=== PATIENT | male | born 1950 | race Caucasian/White ===

== ENCOUNTER → 2020-06-17 19:01 | Outpatient (ROUT) | payer MEDICARE, OTHER, SELFPAY ==
[2020-06-17 19:42] LABS: Add Manual Diff / Slide Review NO; Basophils Absolute Auto 0 /uL (0-100); Basophils Percent Auto 0.4 % (0-2); Eosinophils Absolute Auto 100 /uL (0-450); Eosinophils Percent Auto 1.5 % (2-4); Hematocrit 44.5 % (41-53); Hemoglobin 15.4 g/dL (13.5-17.5); Lymphocytes Absolute Auto 1400 /uL (1100-4500); Lymphocytes Percent Auto 24.1 % (25-40); Mean Corpuscular HGB Conc 34.6 % (30-36); Mean Corpuscular Hemoglobin 32.1 PG (26-34); Mean Corpuscular Volume 92.7 fL (80-100); Monocytes Absolute Auto 400 /uL (0-900); Monocytes Percent Auto 6.6 % (3-14); Neutrophils Absolute Auto 4000 /uL (1500-7000); Neutrophils Percent Auto 67.4 % (50-75); Platelet Count 169 X10^3/uL (150-400); Red Cell Distribution Width 12.9 % (11.6-14.8)
[2020-06-17 19:49] LABS: Aspartate Aminotransferase 28 IU/L (17-59); BUN Creatinine Ratio 24.6 (6-22); Blood Urea Nitrogen 17 mg/dL (9-20); Calcium 9.5 mg/dL (8.4-10.2); Carbon Dioxide 26 mmol/L (22-32); Chloride 104 mmol/L (98-107); Cholesterol 108 mg/dL (140-199); Estimated Glomerular Filt Rate > 60.0 mL/min (>60); Glucose 105 mg/dL (80-110); HDL Cholesterol 40 mg/dL (40-60); HEMOLYSIS < 15 (0-50); LDL Cholesterol Calculated 56 mg/dL (<100); Potassium 3.7 mmol/L (3.4-5.1); Sodium 139 mmol/L (137-145); Triglycerides 59 mg/dL (35-150)
[2020-06-17 20:20] LABS: Prostate Specific Antigen 1.06 ng/mL (0.10-4.00); TSH w/ Reflex to FT4 2.18 uIU/mL (0.47-4.68)
== END ==
PROVIDERS: Family Provider Internal Medicine; PCP Internal Medicine; Visit Provider Internal Medicine
DX: I10 Essential (primary) hypertension (principal); E78.2 Mixed hyperlipidemia; N40.1 Benign prostatic hyperplasia with lower urinary tract symptoms
CPT/HCPCS: 80048; 80061; 84153; 84443; 84450; 85025

== ENCOUNTER → 2021-09-16 10:24 | Outpatient (CLI) | payer MEDICARE, OTHER, SELFPAY ==
[2021-09-16 11:19] LABS: Hematocrit 43.5 % (41-53); Hemoglobin 15.1 g/dL (13.5-17.5); Mean Corpuscular HGB Conc 34.7 % (30-36); Mean Corpuscular Hemoglobin 31.9 PG (26-34); Platelet Count 195 X10^3/uL (150-400); Red Blood Cell Count 4.73 X10^6/uL (4.5-5.9); White Blood Cell Count 5.8 X10^3/uL (4.5-11.0)
[2021-09-16 11:48] LABS: Alanine Aminotransferase 22 IU/L (<50); Albumin 3.9 g/dL (3.5-5.0); Albumin Globulin Ratio 1.3 (1.0-2.8); Alkaline Phosphatase 81 U/L (38-126); Aspartate Aminotransferase 29 IU/L (17-59); BUN Creatinine Ratio 15.9 (6-22); Bilirubin Total 0.4 mg/dL (0.2-1.3); Blood Urea Nitrogen 13 mg/dL (9-20); Calcium 8.6 mg/dL (8.4-10.2); Carbon Dioxide 31 mmol/L (22-32); Chloride 103 mmol/L (98-107); Cholesterol 100 mg/dL (140-199); Estimated Glomerular Filt Rate > 60 mL/min (>60); Globulin 2.9 g/dL (1.7-4.1); Glucose 100 mg/dL (80-110); HDL Cholesterol 35 mg/dL (40-60); HEMOLYSIS < 15 (0-50); LDL Cholesterol Calculated 53 mg/dL (<100); Potassium 4.1 mmol/L (3.4-5.1); Sodium 139 mmol/L (137-145); Total Protein 6.8 g/dL (6.3-8.2); Triglycerides 62 mg/dL (35-150)
[2021-09-16 12:19] LABS: Prostate Specific Antigen 1.26 ng/mL (0.10-4.00)
[2021-09-16 12:20] LABS: TSH w/ Reflex to FT4 1.53 uIU/mL (0.47-4.68)
== END ==
PROVIDERS: Family Provider Internal Medicine; PCP Internal Medicine; Referring Provider Internal Medicine; Visit Provider Internal Medicine
DX: E78.2 Mixed hyperlipidemia (principal); I10 Essential (primary) hypertension; N13.8 Other obstructive and reflux uropathy; N40.1 Benign prostatic hyperplasia with lower urinary tract symptoms
CPT/HCPCS: 36415; 80053; 80061; 84153; 84443; 85027

== ENCOUNTER 2022-06-16 15:11 | Emergency (ER) | payer MEDICARE, OTHER, SELFPAY ==
[2022-06-16 15:47] VITALS: BP 193/95; PULSE 89; RESP 16; TEMP 37.2; O2SAT 98; BMI 25.5
[2022-06-16] MEDS: ACETAMINOPHEN 325 MG TABLET 650 MG PO (16:29)
[2022-06-16] MEDS: LIDOCAINE 2% INJ SDV 5ML 5 ML INJ (16:29)
--- NOTE | 2022-06-16 16:41 | ED_ITS ---
HPI - Wound/Laceration General Chief Complaint: Wound/Laceration Stated Complaint: Pinky finger cut on blade Time Seen by Provider: 06/16/22 16:23 Source: patient Mode of arrival: Ambulatory History of Present Illness HPI narrative: This is a 72-year-old gentleman who presents to the emergency department after he accidentally cut his left 4th finger using a rotary tool. States that his tetanus today, injured the distal tip is finger, states that it started bleeding covered it up so fast he was not sure if there is any tissue to preserve. He is not anticoagulated denies any medical problems that will affect his finger laceration. Related Data Previous Rx's Medication Instructions Recorded doxazosin 4 mg tablet 8 mg PO Q DAY #180 tabs 09/16/21 losartan 50 mg-hydrochlorothiazide 1 tab PO DAILY #90 tabs 09/16/21 12.5 mg tablet omeprazole 20 mg capsule,delayed 20 mg PO Q DAY #90 caps 09/16/21 release rosuvastatin 10 mg tablet 10 mg PO DAILY #90 tabs 09/16/21 cephalexin 500 mg capsule 500 mg PO TID 5 days #15 caps 06/16/22 mupirocin 2 % topical ointment 1 applic topical DAILY #15 grams 06/16/22 Allergies Allergy/AdvReac Type Severity Reaction Status Date / Time No Known Drug Allergies Allergy Verified 06/16/22 15:47 Review of Systems Review of Systems ROS Unobtainable: All systems reviewed & are unremarkable except as noted in HPI and below Patient History Medical History Advance directive indicates patient wish for [id number] status Advanced directives, counseling/discussion Allergic rhinitis BPH w urinary obs/LUTS Do not resuscitate Essential hypertension Family history of colon cancer in mother Foot pain (~2018) GERD without esophagitis Hearing loss History of colonic polyps Medicare annual wellness visit, initial Mixed hyperlipidemia Primary osteoarthritis involving multiple joints Ruptured tympanic membrane Skin cancer Slow transit constipation Surgical History Anesthesia Cleft lip and cleft palate Family History Father Cancer Mother Cervical cancer Colon cancer Social History Smoking Status: Never smoker Smoking Status: Never smoker Substance Use Type: does not use Exam Initial Vital Signs Initial Vital Signs: Vital Signs Temperature 98.9 F 06/16/22 15:47 Pulse Rate 89 06/16/22 15:47 Respiratory Rate 16 06/16/22 15:47 Blood Pressure 193/95 H 06/16/22 15:47 Pulse Oximetry 98 06/16/22 15:47 Oxygen Delivery Method Room Air 06/16/22 15:47 My finger exam: Patient's fingertip has macerated tissue with multiple lacerations, it is slowly oozing blood, fingernail injury with laceration over the nail bed and missing the latter half of his fingernail, wound was thoroughly irrigated with normal saline, wound edges were approximated as best as possible with sutures, patient received a total of 17 nylon sutures and 4 chromic gut sutures to both the finger pad and the distal fingertip. X-rays negative for acute fracture, patient was hemostatic after procedure complete, still had a brisk cap refill and full mobility of his finger without presumed tendon injury. Procedures Laceration Repair Laceration 1: Site: hand Side (If applicable): left Size (cm): 3 Description: stellate and irregular Depth: involves muscle layer Local Anesthetic: lidocaine 2% Amount of anesthesia used (mL): 3 Pre-repair: wound explored, irrigated extensively and deep structures intact Skin layer closed with: nylon Skin layer suture size: 5-0 Number of sutures: 17 Technique: simple, interrupted Subcutaneous layer closed with: chromic gut Subcutaneous layer suture size: 4-0 Number of sutures: 3 Technique: simple, interrupted Course Orders Ordered: ED Orders 06/16/22 16:55 XR finger LT min 2V Stat Discontinued Medications Acetaminophen (Acetaminophen 325 Mg Tablet) 650 mg PO NOW ONE Stop: 06/16/22 16:25 Last Admin: 06/16/22 16:29 Dose: 650 mg Documented By: CARL Lidocaine HCl (Lidocaine 2% Inj Sdv 5ml) 5 ml INJ INTRA-OP ONE Stop: 06/16/22 16:25 Last Admin: 06/16/22 16:29 Dose: 5 ml Documented By: CARL Vital Signs Vital signs: Vital Signs - 8 hr 06/16/22 15:47 Temperature 98.9 F Pulse Rate 89 Respiratory Rate 16 Blood Pressure 193/95 H Pulse Oximetry 98 Oxygen Delivery Method Room Air MDM - Wound/Laceration Imaging Data Extremity x-ray #1: Radiologist's Impression: PROCEDURE:? XR FINGER LT MIN 2V ? INDICATIONS:? saw trauma ? TECHNIQUE:? AP hand, 2 views of the 5th finger(s) acquired.? ? COMPARISON:? None. ? FINDINGS:? ? Bones:? No fractures or dislocations.? No suspicious bony lesions.? Age- appropriate bony degenerative changes are seen.? ? Soft tissues:? 5th finger soft tissue injury can be seen, with overlying gauze material. ? IMPRESSION:? 5th finger soft tissue injury, without an associated bony abnormality identified. ? ? Dictated by: Skyler Rizzo M.D. on 06/16/2022 at 16:25 ? ? Approved by: Skyler Rizzo M.D. on 06/16/2022 at 16:26 ? MDM Narrative Medical decision making narrative: Chief Complaint: finger laceration Independent historian: patient Multiple etiologies for patient's symptoms considered including, but not limited to: Skin laceration, vascular injury, tuft fracture I have independently reviewed the patient's vital signs and nursing notes as well as prior records if available. My interpretation of imaginth finger x-rays negative for acute fracture/abnormality Course of care: Patient's tetanus is up-to-date, suture repair was completed, patient's wound was covered with Surgicel to help with bleeding, Xeroform, and adhesive dressing was placed, cap refill is brisk, thorough irrigation was completed prior to wound closure with normal saline. Patient is instructed to start taking the cephalexin if he develops redness or streaking up his finger, he was prescribed topical mupirocin, denies need for pain medication. He was given Tylenol in the emergency department. He was given a take-home prescription cephalexin for infectious symptoms some. He understands to have his sutures out in 7-10 days Social considerations that may affect disposition: none Questions are addressed and there is agreement with the plan and for follow-up. I consulted with the ED attending physician Dr. Anderson as needed for higher level of care considerations and they were available for discussion and recommendations regarding plan of care and diagnostic testing. Patient is appropriate for outpatient management. Discharge Plan Departure Patient Disposition: Home Clinical Impression: Finger laceration Qualifiers: Encounter type: initial encounter Finger: little finger Damage to nail status: with damage Foreign body presence: without foreign body Laterality: left Qualified Code(s): S61.317A - Laceration without foreign body of left little finger with damage to nail, initial encounter Instructions: How to Care for a Laceration After Repair, DI for Laceration Repair Activity Restrictions/Additional Instructions: *You have been diagnosed with a finger laceration involving nail bed. Received approximally 17 sutures and 4 dissolvable, these can be taken out 10 days. Please start taking the antibiotic if you develop redness or streaking up your finger, worsening swelling or pain, please come back if you have any concerns about pain, bleeding, or other abnormality. Please use a topical antibiotic ointment, covered with a Band-Aid, that should help keep it protected. Thank you for your patients today, it was a pleasure to meet you, there is no associated fracture on your x-ray, I have printed a copy for you and you should likely do well with a topical antibiotic. You can come back to the walk-in clinic to have your sutures removed as well. *What to do: *Please continue to take your regular medications as directed. [x ] New medication prescriptions sent to your pharmacy: [ [facility]] [ ] New medication written as a paper prescription [ ] No new medications given *Please call and schedule follow up with your primary care provider in 2-3 days, at least for an update. Let them know you were seen in the Emergency Department for the above problem. We will electronically transmit a record of today's note if your PCP or specialist is in our system. *If you do not have a primary care provider please contact [phone] to establish care with one of the [facility] primary care providers. *Return to the Emergency Department for worsening symptoms, inability to keep liquids down, fever greater than 101F, chills, or other concerning symptom. Prescriptions: New mupirocin 2 % ointment 1 applic topical DAILY Qty: 15 0RF cephalexin 500 mg capsule 500 mg PO TID 5 Days Qty: 15 0RF No Action doxazosin 4 mg tablet 8 mg PO Q DAY Qty: 180 3RF losartan-hydrochlorothiazide 50-12.5 mg tablet 1 tab PO DAILY Qty: 90 3RF omeprazole 20 mg capsule,delayed release(DR/EC) 20 mg PO Q DAY Qty: 90 3RF rosuvastatin 10 mg tablet 10 mg PO DAILY Qty: 90 3RF Referrals: Allan Tellez MD [Primary Care Provider] - Stand Alone Forms: Patient Portal/API
--- NOTE | 2022-06-16 16:55 | DI.RAD.S_ITS ---
PROCEDURE: XR FINGER LT MIN 2V INDICATIONS: saw trauma TECHNIQUE: AP hand, 2 views of the 5th finger(s) acquired. COMPARISON: None. FINDINGS: Bones: No fractures or dislocations. No suspicious bony lesions. Age-appropriate bony degenerative changes are seen. Soft tissues: 5th finger soft tissue injury can be seen, with overlying gauze material. IMPRESSION: 5th finger soft tissue injury, without an associated bony abnormality identified. Dictated by: Skyler Rizzo M.D. on 06/16/2022 at 16:25 Approved by: Skyler Rizzo M.D. on 06/16/2022 at 16:26
--- NOTE | 2022-06-16 18:05 | PC.NURSE ---
Laceration to pinky on left hand from accidentally inserting his finger into a router blade saw. Provider cleaned, dressed wound as well as 17 stitches. Pt tolerated procedure well.
== END 2022-06-16 18:08 | disposition home or self-care (01) ==
PROVIDERS: Emergency Provider Nurse Practitioner Critical Care Medicine; Family Provider Internal Medicine; PCP Internal Medicine
DX: S61.317A Laceration without foreign body of left little finger with damage to nail, initial encounter (principal); W29.8XXA Contact with other powered hand tools and household machinery, initial encounter
CPT/HCPCS: 13132; 73140; 99283

== ENCOUNTER → 2022-09-27 09:21 | Outpatient (CLI) | payer MEDICARE, OTHER, SELFPAY ==
[2022-09-27 11:05] LABS: Hematocrit 45.2 % (41-53); Hemoglobin 15.8 g/dL (13.5-17.5); Mean Corpuscular Hemoglobin 32.3 PG (26-34); Mean Corpuscular Volume 92.2 fL (80-100); Platelet Count 182 X10^3/uL (150-400); Red Cell Distribution Width 12.7 % (11.6-14.8); White Blood Cell Count 6.1 X10^3/uL (4.5-11.0)
[2022-09-27 11:22] LABS: Aspartate Aminotransferase 27 IU/L (17-59); Blood Urea Nitrogen 15 mg/dL (9-20); Carbon Dioxide 30 mmol/L (22-32); Chloride 100 mmol/L (98-107); Cholesterol 122 mg/dL (140-199); Estimated Glomerular Filt Rate > 60 mL/min (>60); Glucose 96 mg/dL (80-110); HDL Cholesterol 41 mg/dL (40-60); HEMOLYSIS < 15 (0-50); LDL Cholesterol Calculated 61 mg/dL (<100); Potassium 4.2 mmol/L (3.4-5.1); Sodium 138 mmol/L (137-145); Triglycerides 100 mg/dL (35-150)
[2022-09-27 11:49] LABS: Thyroid Stimulating Hormone 2.43 uIU/mL (0.47-4.68)
== END ==
PROVIDERS: Family Provider Internal Medicine; PCP Internal Medicine; Referring Provider Internal Medicine; Visit Provider Internal Medicine
DX: E78.2 Mixed hyperlipidemia (principal); N40.1 Benign prostatic hyperplasia with lower urinary tract symptoms; I10 Essential (primary) hypertension; N13.8 Other obstructive and reflux uropathy
CPT/HCPCS: 36415; 80048; 80061; 84153; 84443; 84450; 85027

== ENCOUNTER → 2023-06-27 07:30 | Outpatient (CLI) | payer MEDICARE, OTHER, SELFPAY ==
[2023-06-27 08:29] LABS: Blood Urea Nitrogen 16 mg/dL (9-20); Carbon Dioxide 30 mmol/L (22-32); Chloride 104 mmol/L (98-107); Estimated Glomerular Filt Rate > 60 mL/min (>60); Glucose 98 mg/dL (80-110); HEMOLYSIS < 15 (0-50); Sodium 138 mmol/L (137-145)
== END ==
PROVIDERS: Family Provider Internal Medicine; PCP Internal Medicine; Referring Provider Internal Medicine; Visit Provider Internal Medicine
DX: I10 Essential (primary) hypertension (principal)
CPT/HCPCS: 36415; 80048

== ENCOUNTER → 2023-10-03 10:11 | Outpatient (CLI) | payer MEDICARE, OTHER, SELFPAY ==
[2023-10-03 11:47] LABS: Aspartate Aminotransferase 29 IU/L (17-59); BUN Creatinine Ratio 20.5 (6-22); Blood Urea Nitrogen 17 mg/dL (9-20); Calcium 9.1 mg/dL (8.4-10.2); Carbon Dioxide 28 mmol/L (22-32); Chloride 104 mmol/L (98-107); Cholesterol 110 mg/dL (140-199); Estimated Glomerular Filt Rate > 60 mL/min (>60); Glucose 91 mg/dL (80-110); HDL Cholesterol 35 mg/dL (40-60); HEMOLYSIS < 15 (0-50); LDL Cholesterol Calculated 35 mg/dL (<100); Potassium 4.1 mmol/L (3.4-5.1); Sodium 139 mmol/L (137-145); Triglycerides 198 mg/dL (35-150)
== END ==
LOC: LAB 10:12
PROVIDERS: Family Provider Internal Medicine; PCP Internal Medicine; Referring Provider Internal Medicine; Visit Provider Internal Medicine
DX: E78.2 Mixed hyperlipidemia (principal); N40.1 Benign prostatic hyperplasia with lower urinary tract symptoms; N13.8 Other obstructive and reflux uropathy; I10 Essential (primary) hypertension
CPT/HCPCS: 36415; 80048; 80061; 84153; 84450